=== PATIENT | female | born 1950 | race Caucasian/White ===

== ENCOUNTER → 2016-08-23 | Outpatient (CLI) | payer MEDICARE, OTHER ==
[~2016-08-23] MED LIST: AMLO1CAP5 PO; ASP81TEC PO; C250T PO; CALC-850 PO; CHOL10003 PO; CRESTOR40 MG PO; ESTR1TAB24 PO; ESTRACE; HYDR-1229 PO; LOTRIL; LVT.1T PO; MTF500T; MTF500TCR PO; OMEG1CAP51 PO; PNT40TEC PO; THYROXINE; VYTORIN
--- NOTE | 2016-08-24 15:29 | Diagnostic Imaging Report ---
Bilateral screening mammogram. The current study was also evaluated with a Computer Aided Detection (CAD) system. INDICATION: Screening. No current complaints stated on the questionnaire. COMPARISON: 09/01/2015. FINDINGS: The breasts are composed of scattered fibroglandular densities. There are scattered benign-appearing calcifications. There is a focal asymmetry measuring 7 mm seen in the central upper aspect of the left breast slightly more prominent compared to prior exams. The right breast demonstrates no definite change. IMPRESSION: Focal compression views and ultrasound evaluation for central slightly superior left breast focal asymmetry is recommended. ACR BI-RADS Category 0: Incomplete. (Needs additional imaging evaluation). Result letter will be mailed to the patient. Note: At least 10% of breast cancer is not imaged by mammography. Dictated by: Dictated on workstation # [id number]
== END ==
LOC: RAD 10:32
PROVIDERS: ATTEND Internal Medicine
DX: Z12.31 Encounter for screening mammogram for malignant neoplasm of breast (principal); R92.8 Other abnormal and inconclusive findings on diagnostic imaging of breast
CPT/HCPCS: 77067

== ENCOUNTER → 2016-09-05 | Outpatient (CLI) | payer MEDICARE, OTHER ==
--- NOTE | 2016-09-05 13:54 | Diagnostic Imaging Report ---
EXAMINATION: Left breast ultrasound. INDICATION: Left breast central slightly superior focal asymmetry seen on mammography. FINDINGS: The upper breast and retroareolar region were scanned with no underlying abnormality seen. IMPRESSION: Negative study. The focal asymmetry in the central slightly superior aspect of the left breast could relate to summation effect of parenchyma. A 6 month followup mammogram is recommended to ensure stability or resolution. ACR BI-RADS Category 3: Probably benign findings. Dictated by: Dictated on workstation # [id number]
--- NOTE | 2016-09-05 18:05 | Diagnostic Imaging Report ---
Left breast diagnostic mammogram. INDICATION: Focal asymmetry along the upper aspect of the left breast. The current study was also evaluated with a Computer Aided Detection (CAD) system. FINDINGS: Additional views demonstrate less prominent focal asymmetry in the upper aspect of the left breast which may suggest summation artifact of parenchyma. IMPRESSION: Less prominent asymmetry may relate to summation effect of parenchyma. Ultrasound evaluation pending. ACR BI-RADS Category 0: Incomplete. (Needs additional imaging evaluation). Result letter will be mailed to the patient. Note: At least 10% of breast cancer is not imaged by mammography. Dictated by: Dictated on workstation # [id number]
== END ==
LOC: RAD 12:58
PROVIDERS: ATTEND Internal Medicine
DX: N64.89 Other specified disorders of breast (principal)
CPT/HCPCS: 76642

== ENCOUNTER → 2017-02-17 | Outpatient (CLI) | payer MEDICARE, OTHER ==
--- NOTE | 2017-02-17 18:25 | Diagnostic Imaging Report ---
Left breast diagnostic mammogram with tomography evaluation. The current study was also evaluated with a Computer Aided Detection (CAD) system. COMPARISON: 09/05/16. INDICATION: Followup asymmetry along the lateral aspect of the left breast. FINDINGS: Again seen 6 mm oval circumscribed asymmetry slightly lateral in the left CC projection with no significant change from the previous study. IMPRESSION: Stable 6 mm oval circumscribed lateral left breast asymmetry with no significant change. This could be related to underlying fibroglandular tissue. Another followup when the patient is due for her bilateral mammogram in August 2017 is recommended. ACR BI-RADS Category 3: Probably benign findings. Result letter will be mailed to the patient. Note: At least 10% of breast cancer is not imaged by mammography. Dictated by: Dictated on workstation # [id number]
== END ==
LOC: RAD 08:49
PROVIDERS: ATTEND Internal Medicine
DX: N64.89 Other specified disorders of breast (principal)

== ENCOUNTER → 2017-10-05 | Outpatient (CLI) | payer MEDICARE, OTHER ==
--- NOTE | 2017-10-05 19:16 | Diagnostic Imaging Report ---
EXAMINATION: Bilateral diagnostic mammogram. INDICATION: Followup mammogram. The current study was also evaluated with a Computer Aided Detection (CAD) system. FINDINGS: The screening mammogram performed on 08/23/2016 noted a focal asymmetry in the central portion of the left breast measuring approximately 6-7 mm. The subsequent diagnostic mammogram and ultrasound exam of 09/05/2016 failed to show any evidence for malignancy. The asymmetric density also appeared stable on the followup diagnostic mammogram of 02/17/2017. On this study, the density in question is again evident and no different. I do suspect that this is a benign process. Even so, I would recommend that a six-month followup mammogram be obtained for continued evaluation. If this finding is stable on the followup mammogram and remains stable on the mammogram one year from now, then no further surveillance will be necessary as a two-year period of stability will have been established. The overall appearance of the breasts has not changed significantly otherwise. There are scattered fibroglandular densities in each breast, which could obscure a lesion. There is no primary or secondary sign of malignancy identified. IMPRESSION: 1. The small asymmetric density in the left breast seen previously appears stable. Most likely, this is a benign process. A six-month followup exam would be recommended for continued evaluation. 2. There is no evidence for malignancy involving either breast. ACR BI-RADS Category 3: Probably benign findings. Result letter will be mailed to the patient. Note: At least 10% of breast cancer is not imaged by mammography. Dictated by: Dictated on workstation # [id number]
== END ==
LOC: RAD 10:58
PROVIDERS: ATTEND Internal Medicine
DX: R92.0 Mammographic microcalcification found on diagnostic imaging of breast (principal)
CPT/HCPCS: 77066

== ENCOUNTER → 2018-10-17 | Outpatient (CLI) | payer MEDICARE, OTHER ==
--- NOTE | 2018-10-17 16:41 | Diagnostic Imaging Report ---
INDICATION: Six-month followup left breast density. COMPARISON: Correlation is made with prior mammograms dating back to 08/23/2016. TECHNIQUE: 2D and 3D bilateral diagnostic mammography was performed with CAD. FINDINGS: Scattered fibroglandular densities are identified bilaterally. An ovoid asymmetric density in the central left breast just lateral to the midline line on the CC view is stable. This now shows 2 years of stability. No new mass is detected. No suspicious microcalcifications are seen. There are benign calcifications present. The axillae are unremarkable. IMPRESSION: No mammographic features suspicious for malignancy are identified. The asymmetric density in the left breast now demonstrates 2 years of stability. The patient may return to routine annual screening mammography in October 2019. ACR BI-RADS Category 2: Benign findings. Result letter will be mailed to the patient. Note: At least 10% of breast cancer is not imaged by mammography. Dictated by: Dictated on workstation # [id number]
== END ==
LOC: RAD 13:42
PROVIDERS: ATTEND Internal Medicine
DX: R92.2 Inconclusive mammogram (principal); R92.0 Mammographic microcalcification found on diagnostic imaging of breast
CPT/HCPCS: 77066

== ENCOUNTER → 2019-10-21 | Outpatient (CLI) | payer MEDICARE, OTHER ==
--- NOTE | 2019-10-21 11:47 | Diagnostic Imaging Report ---
INDICATION: Routine screening. COMPARISON: 10/17/2018 and 10/05/2017. TECHNIQUE: 2D and 3D bilateral screening mammography was performed with CAD. FINDINGS: Scattered fibroglandular densities are identified bilaterally. The ovoid density in the left breast previously noted remains stable. No new mass or malignant appearing microcalcifications are seen. The axillae are unremarkable. IMPRESSION: No mammographic features suspicious for malignancy are identified. ACR BI-RADS Category 2: Benign findings. Result letter will be mailed to the patient. Note: At least 10% of breast cancer is not imaged by mammography. Dictated by: Dictated on workstation # [id number]
== END ==
LOC: RAD 08:46
PROVIDERS: ATTEND Internal Medicine
DX: Z12.31 Encounter for screening mammogram for malignant neoplasm of breast (principal)
CPT/HCPCS: 77063; 77067

== ENCOUNTER 2020-01-10 05:32 | Outpatient (RCR) | payer MEDICARE, OTHER ==
[~2020-01-10] VITALS: Ht 167.7 cm; Wt 95.5 kg
[~2020-01-10 05:32] MED LIST changes: +ASCO100024 PO; +ASPI-999 PO; +ATOR80TA76 PO; +CALC-83 PO; +CHOL200014 PO; +LEVO100T7 PO; +METF-865 PO; +OMEG1CAP13 PO; +PANT40TA52 PO
== END 2020-01-10 11:12 | disposition home or self-care (01) ==
LOC: PREOP 05:32
PROVIDERS: ATTEND Surgery
DX: Z01.812 Encounter for preprocedural laboratory examination (principal); Z12.11 Encounter for screening for malignant neoplasm of colon; K21.9 Gastro-esophageal reflux disease without esophagitis; Z20.828 Contact with and (suspected) exposure to other viral communicable diseases
CPT/HCPCS: 87635

== ENCOUNTER 2020-01-14 12:54 | Day surgery (SDC) | payer MEDICARE, OTHER ==
[~2020-01-14] VITALS: Ht 167.7 cm; Wt 95.5 kg
[2020-01-14] VITALS (7 sets, daily range): BP systolic 87–138; BP diastolic 49–79
[2020-01-14] MEDS ORDERED: LACTATED RINGERS 1,000 ML IV STA (13:05)
[2020-01-14] MEDS ORDERED: HURRICAINE EXT TUBE (BENZOCAINE) XX PRN (13:15)
[2020-01-14] MEDS ORDERED: LACTATED RINGERS 1,000 ML IV ONE (13:17)
[2020-01-14] MEDS ORDERED: PROPOFOL INJECTION 50 ML IV ONE (14:07)
--- NOTE | 2020-01-14 15:02 | Anesthesia-General Post-Op ---
MAC Patient Condition Mental Status/LOC: Same as Preop Cardiovascular: Satisfactory Nausea/Vomiting: Absent Respiratory: Satisfactory Pain: Controlled Complications: Absent Post Op Complications Complications None Follow Up Care/Instructions Patient Instructions None needed. Anesthesiology Discharge Order Discharge Order Patient is doing well, no complaints, stable vital signs, no apparent adverse anesthesia problems. No complications reported per nursing. JAY KRAUS CRNA Jan 14, 2020 15:02
--- NOTE | 2020-01-14 15:10 | Progress Note-Post Operative ---
Post-Operative Progess Note Surgeon (s)/Collections Representative (s) Surgeon BECKI DOLAN DO Collections Representative: na Pre-Operative Diagnosis gerd, screening colonoscopy Post-Operative Diagnosis gastric polyps, diverticulosis, ascending mucosal change Procedure & Operative Findings Date of Procedure 01/14/20 Procedure Performed/Findings egd c biopsies, colonoscopy c cold biopsy mucosal change Anesthesia Type per [facility] Estimated Blood Loss Estimated blood loss (mL): none Specimens/Packing Specimens Removed antrum, ge, ascending mucosal change BECKI DOLAN DO Jan 14, 2020 15:10
--- NOTE | 2020-01-14 15:11 | Discharge Inst-Simple/Standard ---
Discharge Inst-Standard Patient Instructions/Follow Up Plan of Care/Instructions/FU: 2 weeks Paulette Activity as Tolerated: Yes Discharge Diet: Regular Diet (high fiber) BECKI DOLAN DO Jan 14, 2020 15:11
--- NOTE | 2020-01-15 01:06 | OPERATIVE REPORT ---
DATE OF SERVICE: 01/14/2020 PREOPERATIVE DIAGNOSES: Gastroesophageal reflux disease, screening colonoscopy. POSTOPERATIVE DIAGNOSES: Gastric polyps, diverticulosis, ascending mucosal change. SURGEON: Becki Caldwell DO ANESTHESIA: Per MDA. ESTIMATED BLOOD LOSS: None. COMPLICATIONS: None. PROCEDURE: EGD with biopsies, colonoscopy with cold biopsy mucosal change. INDICATIONS: The patient is a 69-year-old female with reflux symptoms and also needing screening colonoscopy. She understands risks and benefits of procedure and wished to proceed with procedure. Consent was signed in the chart. DESCRIPTION OF PROCEDURE: The patient was taken to the endoscopy suite, placed in left lateral recumbent position. Timeout was performed. Scope was inserted in mouth, down the esophagus, stomach and into the duodenum without difficulty. There are no polyps, masses or ulcerations within the duodenum. Scope was slowly retracted back into the stomach where it was further insufflated. No masses or ulcerations. Small benign appearing polyps present. Biopsy of the antrum was obtained. Scope was retroflexed noting no other pathology. Scope was returned to its normal position, slowly withdrawn to distal esophagus. There are no polyps, masses or ulcerations. Biopsy of GE junction was obtained. Scope was then slowly retracted back until completely removed noting no other pathology. Digital rectal exam was performed. There were no palpable polyps, masses or ulcerations. Scope was inserted in the rectum and advanced all the way to the cecum without difficulty. Prep was adequate. No polyps, masses or ulcerations in the cecum. In the ascending colon, small mucosal changes present, cold biopsy was obtained. Scope was then slowly retracted back noting no other pathology from the cecum all the way down to the rectum where the scope was then retroflexed noting no other pathology. Scope was returned to its normal position and slowly withdrawn until completely removed. Again noting minimal amount of diverticulosis through the colon present. RECOMMENDATIONS: The patient recommended high fiber diet. Await biopsy results. Continue current medications. Await further recommendations pending results of biopsy. Job ID: [id number] DocumentID: [id number] Dictated Date: 01/14/2020 15:15:38 Predator Control Trapper Date: 01/15/2020 01:05:40 Dictated By: BECKI CALDWELL DO
== END 2020-01-14 15:35 | disposition home or self-care (01) ==
LOC: ENDO 12:54
PROVIDERS: ATTEND Surgery
DX: Z12.11 Encounter for screening for malignant neoplasm of colon (principal); K31.7 Polyp of stomach and duodenum; K57.30 Diverticulosis of large intestine without perforation or abscess without bleeding; I10 Essential (primary) hypertension; E11.9 Type 2 diabetes mellitus without complications; E03.9 Hypothyroidism, unspecified; E78.5 Hyperlipidemia, unspecified; Z87.19 Personal history of other diseases of the digestive system; M06.9 Rheumatoid arthritis, unspecified; K58.9 Irritable bowel syndrome, unspecified; Z96.651 Presence of right artificial knee joint; Z79.899 Other long term (current) drug therapy; Z79.890 Hormone replacement therapy; Z79.84 Long term (current) use of oral hypoglycemic drugs
CPT/HCPCS: 82962; 88305

== ENCOUNTER → 2020-10-21 | Outpatient (CLI) | payer MEDICARE, OTHER ==
--- NOTE | 2020-10-21 13:35 | Diagnostic Imaging Report ---
INDICATION: Routine screening. COMPARISON: 10/21/2019 and 10/17/2018. TECHNIQUE: 2D and 3D bilateral screening mammography was performed with CAD. FINDINGS: Scattered fibroglandular densities are identified bilaterally. A left breast circumscribed ovoid density is stable. No new mass or malignant-appearing microcalcifications are seen. There are benign calcifications present. The axillae are unremarkable. IMPRESSION: No mammographic features suspicious for malignancy are identified. ACR BI-RADS Category 2: Benign findings. Result letter will be mailed to the patient. Note: At least 10% of breast cancer is not imaged by mammography. Dictated by: Dictated on workstation # [id number]
== END ==
LOC: RAD 10:00
PROVIDERS: ATTEND Internal Medicine
DX: Z12.31 Encounter for screening mammogram for malignant neoplasm of breast (principal)
CPT/HCPCS: 77063; 77067

== ENCOUNTER → 2021-10-26 | Outpatient (CLI) | payer MEDICARE ==
[~2021-10-26] MED LIST changes: -CHOL200014 PO; +CHOL200052 PO
--- NOTE | 2021-10-26 15:48 | Diagnostic Imaging Report ---
INDICATION: Routine screening. COMPARISON: 10/21/2020 and 10/21/2019. TECHNIQUE: 2D and 3D bilateral screening mammography was performed with CAD. FINDINGS: Both breasts are heterogeneously dense, limiting the sensitivity of mammography. Benign nodular densities in both breasts are stable. No mass or malignant-appearing microcalcifications are seen. The axillae are unremarkable. IMPRESSION: No mammographic features suspicious for malignancy are identified. ACR BI-RADS Category 2: Benign findings. Result letter will be mailed to the patient. Note: At least 10% of breast cancer is not imaged by mammography. Dictated by: Dictated on workstation # [id number]
--- NOTE | 2021-10-26 17:00 | Diagnostic Imaging Report ---
INDICATION: Postmenopausal screening COMPARISON: 07/06/2009 FINDINGS: AP Spine L1-L4: [BMD (g/cm2): 1.461] [T-Score: 2.2] [Z-Score: 3.1] [BMD Previous: 1.456] [BMD % Change: 0.3] LT Hip Neck: [BMD (g/cm2): 0.957] [T-Score: -0.6] [Z-Score: -.07] LT Hip Total: [BMD (g/cm2):1.048] [T-Score:0.3] [Z-Score: 1.3] [BMD Previous: 1.233] [BMD % Change: -15.0] RT Hip Neck: [BMD (g/cm2):0.962] [T-Score:-0.5] [Z-Score:0.7] RT Hip Total: [BMD (g/cm2):1.100] [T-score:0.7] [Z-Score:1.7] [BMD Previous:1.227] [BMD % Change:-10.4] *Indicates significant change from prior examination based on 95% confidence level. World Health Organization criteria for BMD interpretation classify patients as Normal (T-score at or above -1.0), Osteopenic (T-score between -1.0 and -2.5) or Osteoporotic (T-score at or below -2.5). LIMITATIONS AND MODIFICATION: None. FRACTURE RISK (FRAX SCORE): The ten year probability of (%): Major Osteoporotic Fracture: [ ] Hip Fracture: [ ] IMPRESSION: 1. Normal bone mineral density. 2. No significant change in bone mineral density since prior examination. 3. See below National Osteoporosis Foundation guidelines on when to potentially initiate pharmacologic therapy. Based on the National Osteoporosis Foundation Guidelines, pharmacologic treatment should be initiated in any of the following, unless clinical conditions suggest otherwise: * Any patient with prior fragility fracture of the hip or vertebrae. A spine fracture indicates 5X risk for subsequent spine fracture and 2X risk for subsequent hip fracture. * Osteoporosis (T-score <-2.5). * Postmenopausal women and men age 50 and older with low bone mass/osteopenia (T-score between -1.0 and -2.5) by DXA and 10-year major osteoporotic fracture greater than 20% or a 10-year probability of hip fracture greater than 3%. These fracture risks are supplied above in the FRAX score, if applicable. * Clinician judgement and/or patient preferences may indicate treatment for people with 10-year fracture probabilities above or below these levels. Dictated by: Dictated on workstation # [id number]
== END ==
LOC: RAD 12:48
PROVIDERS: ATTEND Internal Medicine
DX: Z12.31 Encounter for screening mammogram for malignant neoplasm of breast (principal); Z13.820 Encounter for screening for osteoporosis; M85.80 Other specified disorders of bone density and structure, unspecified site; Z78.0 Asymptomatic menopausal state
CPT/HCPCS: 77063; 77067; 77080

== ENCOUNTER 2022-09-22 13:53 | Observation (INO) | payer MEDICARE ==
[2022-09-22] VITALS (15 sets, daily range): BP systolic 83–105; BP diastolic 53–70
[~2022-09-22] VITALS: Ht 167.7 cm; Wt 88.5 kg
[~2022-09-22 13:53] MED LIST changes: -OMEG1CAP13 PO; +OMEG1CAP33 PO
[2022-09-22] MEDS ORDERED: diphenhydrAMINE 50 MG/ML INJ (BENADRYL) IVP PRN (14:30)
[2022-09-22] MEDS ORDERED: BISACODYL 10 MG SUPP (DULCOLAX) PR PRN (14:30)
[2022-09-22] MEDS ORDERED: CALCIUM CARBONATE 500 MG (TUMS) TAB.CHEW PO PRN (14:30)
[2022-09-22] MEDS ORDERED: ONDANSETRON 4 MG/2 ML (SDV) Z0FRAN IV PRN (14:30)
[2022-09-22] MEDS ORDERED: polyethylene glycoL POWDER 17 GM (MIRALAX) PACK PO PRN (14:30)
[2022-09-22] MEDS ORDERED: MELATONIN 3 MG TABLET PO PRN (14:30)
[2022-09-22] MEDS ORDERED: ANTACID SUSP 30 ML UDC (MYLANTA) PO PRN (14:30)
[2022-09-22] MEDS ORDERED: NS IV 1000 ML 1,000 ML IV SCH ×2 (14:30→18:15)
[2022-09-22] MEDS ORDERED: ACETAMINOPHEN 325 MG TABLET PO PRN (14:30)
[2022-09-22] MEDS ORDERED: diphenhydrAMINE 25 MG TAB (BENADRYL) PO PRN (14:30)
[2022-09-22] MEDS ORDERED: MILK OF MAGNESIA 400 MG/5 ML 30 ML UDC PO PRN (14:30)
[2022-09-22] MEDS ORDERED: ONDANSETRON 4 MG (ZOFRAN) ORAL DISSOLVE TAB PO PRN (14:30)
[2022-09-22] MEDS ORDERED: LACTULOSE SYRUP 10GM/15ML (ENULOSE) 30ML UDC PO PRN (14:30)
[2022-09-22 14:48] LABS: BASOPHILS % (AUTO) 0 % (0-10); EOSINOPHILS # (AUTO) 0.1 10^3/uL (0.0-0.3); EOSINOPHILS % (AUTO) 2 % (0-10); HEMATOCRIT 42 % (35-52); LYMPHOCYTES # (AUTO) 1.8 10^3/uL (1.0-4.0); LYMPHOCYTES % (AUTO) 29 % (12-44); MEAN CORPUSCULAR HEMOGLOBIN 28 pg (25-34); MEAN CORPUSCULAR HGB CONC 33 g/dL (32-36); MEAN CORPUSCULAR VOLUME 85 fL (80-99); MONOCYTES # (AUTO) 0.8 10^3/uL (0.0-1.0); MONOCYTES % (AUTO) 12 % (0-12); NEUTROPHILS # (AUTO) 3.4 10^3/uL (1.8-7.8); NEUTROPHILS % (AUTO) 56 % (42-75); PLATELET COUNT 80 10^3/uL (130-400); WHITE BLOOD COUNT 6.1 10^3/uL (4.3-11.0)
[2022-09-22 14:53] LABS: ALBUMIN 3.5 GM/DL (3.2-4.5)
[2022-09-22 14:54] LABS: CALCIUM 8.9 MG/DL (8.5-10.1)
[2022-09-22 14:55] LABS: TOTAL PROTEIN 7.7 GM/DL (6.4-8.2)
[2022-09-22 14:57] LABS: BILIRUBIN,TOTAL 0.4 MG/DL (0.1-1.0)
[2022-09-22 14:59] LABS: CREATININE SERUM 1.65 MG/DL (0.60-1.30)
[2022-09-22] MEDS: NS IV 1000 ML 1,000 ML IV SCH (15:01)
[2022-09-22 15:12] LABS: BAND NEUTROPHILS 2 %; BASOPHILS % (MANUAL) 0 %; EOSINOPHILS % (MANUAL) 0 %; LYMPHOCYTES % (MANUAL) 13 %; MONOCYTES % (MANUAL) 20 %; NEUTROPHILS % (MANUAL) 62 %; REACTIVE LYMPHOCYTES 3 %
[2022-09-22 15:13] LABS: ABSOLUTE RETIC # 28 10e9/uL (24-90); ELLIPT/OVALOCYTES SLIGHT; ERYTHROCYTE SEDIMENTATION RATE 30 MM/HR (0-30); RETICULOCYTE % 0.55 % (0.50-2.40)
--- NOTE | 2022-09-22 15:25 | Progress Note ---
LOUIE VALLES 09/22/22 1525: Progress Note CC- weakness, diarrhea, weight loss HPI- Bria Medrano is a 71yoF with past medical history of non insulin dependent diabetes mellitus, HTN, HLD, GERD, hypothyroidism, and diverticulitis requiring bowel resection who is a direct admission from Dr. Munugia's clinic. She had a routine appointment this afternoon 09/22 and was admitted after she revealed a week long history of weakness, lack of appetite, weight loss, and diarrhea. She has also felt dizzy at home with reporting she fell 3 days ago. She did not hit her head and got right back up. She does not remember this event. Her and her reports they both had chills and felt weak about 1 week ago after working on a house. He felt better the next day but she began having diarrhea and weakness. Her diarrhea has been persistent and is clear liquid according to her. She has not noticed any blood or purulence in her BMs. She has significantly decreased food intake due to not feeling well. Reports she has been urinating normally at home. She denies recent sick contacts or any changes to her medications. ROS- negative for chest pain, shortness of breath, emesis, vision changes, headache, abdominal pain positive for weakness, chills, decreased appetite, diarrhea, nausea, weight loss PMH- DM non insulin dependent, HTN, HLD, hypothyroidism, diverticulitis, GERD PSH- colon resection due to diverticulitis, lumbar spine surgery FH- noncontributory Social Hx- denies alcohol, tobacco, or elicit drug use. Has never smoked. Allergies- NKDA Vitals- temp 36.0, HR 89, RR 18, BP 105/58, O2 99 on room air Physical Exam- General- no acute distress, WD/WN Cardio- RRR, no murmurs identified, normal S1 and S2. Respiratory- CTAB, equal breath sounds bilaterally, no wheezing, no accessory muscle use Abdominal- soft, nontender to palpation, no mass palpated, possible hepatomegaly Skin- pallor, no scleral icterus or jaundice, no obvious rash/lesion Extremities- no cyanosis, normal cap refill, pulses 2/3 in bl posterial tib, no peripheral edema Neuro- normal mood and affect, speech clear, EOMI Assessment and Plan Weakness Weight loss Diarrhea Clear liquid diet Fluid bolus Stool studies pending including fecal WBCs, occult blood, C Diff toxin, and stool culture UA pending CT ab/pelvis pending Abdominal u/s pending due to hepatomegaly, elevated liver enzymes, and low platelets Head CT stroke rule out pending JEAN Likely prerenal due to hypoperfusion from volume loss/diarrhea creatinine 1.6 monitor urine output continue IV fluids, receiving bolus then 1L of NS q8hr at 125mls/hr Thrombocytopenia Platelet count 80 Check CBC again in the morning undetermined etiology, could be secondary to liver disease peripheral smear Immature platelet fraction percentage is high, so bone marrow appears to be functioning Elevated liver enzymes AST and ALT elevated normal alk phos Abdominal u/s to evaluate liver Hyponatremia 132 Likely secondary to poor PO intake for 1 week and diarrhea hydrate with IV fluids check CMP in the morning DVT ppx- lovenox Diet- clear liquid code- full MIMI MUNGUIA DO 09/22/222129: Supervisory-Addendum Brief Verification & Attestation Participated in pt care: history, MDM, physical Personally performed: exam, history, MDM, supervision of care Care discussed with: Medical Student Procedures: n/a Results interpretation: Verified all documentation Verification and Attestation of Medical Student E/M Service A medical student performed and documented this service in my presence. I reviewed and verified all information documented by the medical student and made modifications to such information, when appropriate. I personally performed the physical exam and medical decision making. Mimi Munguia, Sep 22, 2022,21:30 LOUIE VALLES Sep 22, 2022 15:25 MIMI MUNGUIA DO Sep 22, 2022 21:30
[2022-09-22] MEDS: inSUlin ASPART (NovoLOG) 1 UNIT/0.01 ML (CHARGE PER UNIT) SC SCH ×2 (16:00→20:51)
[2022-09-22] MEDS ORDERED: RT-ALBUTEROL SULF 2.5 MG/3 ML PRE-MIX VIAL INH PRN (16:00)
--- NOTE | 2022-09-22 16:03 | Diagnostic Imaging Report ---
EXAMINATION: US Abdomen limited. TECHNIQUE: Multiple real-time grayscale images were obtained over the right upper quadrant in various projections. HISTORY: Abdominal pain. COMPARISON: 07/18/2013. FINDINGS: The liver is mildly enlarged in size. The liver is normal in echogenicity. No focal lesions are seen. The portal vein is patent with hepatopedal flow. Gallbladder is absent. Sonographic Young sign is negative. Common duct measures 1.1 cm. There is no biliary ductal dilation. The visualized portions of the pancreas are normal. The right kidney is normal without hydronephrosis. IMPRESSION: 1. Mildly enlarged liver. 2. Mildly dilated common bile duct, potentially related to prior cholecystectomy but consider MRCP to exclude an underlying lesion or stone. Dictated by: Dictated on workstation # [id number]
--- NOTE | 2022-09-22 16:28 | Diagnostic Imaging Report ---
PROCEDURE: CT head wo r/o stroke. TECHNIQUE: Multiple contiguous axial images were obtained through the brain without the use of intravenous contrast. Auto Exposure Controls were utilized during the CT exam to meet ALARA standards for radiation dose reduction. INDICATION: Ataxia. COMPARISON: None. FINDINGS: Mild generalized cerebral and cerebellar volume loss. Mild nonspecific periventricular hypoattenuation, most commonly seen with chronic small vessel ischemic disease. Calcified atherosclerosis of the bilateral cavernous and paraclinoid internal carotid arteries and intracranial vertebral arteries. No intra- or extra-axial mass or fluid collection. No acute hemorrhage. The ventricles are normal in size, shape, and morphology. The segura-white matter junction is normal. The subarachnoid cisterns are patent. The visualized paranasal sinuses are normal. The visualized portions of the orbits and globes are normal. The mastoid air cells are clear. The payroll officer topogram shows no lytic lesion or fracture. Impression: No acute intracranial process. Mild cerebral volume loss. Mild chronic small vessel ischemic disease. Dictated by: Dictated on workstation # [id number]
[2022-09-22 18:38] LABS: BILIRUBIN,URINE NEGATIVE (NEGATIVE); CLARITY,URINE CLEAR; COLOR,URINE YELLOW; GLUCOSE, URINE (UA) NEGATIVE (NEGATIVE); KETONES,URINE NEGATIVE (NEGATIVE); LEUKOCYTE ESTERASE ,URINE 1+ (NEGATIVE); NITRITE,URINE NEGATIVE (NEGATIVE); PROTEIN,URINE NEGATIVE (NEGATIVE)
[2022-09-22 18:51] LABS: BACTERIA,URINE MODERATE /HPF; WBC,URINE 0-2 /HPF
[2022-09-22] MEDS: DOCUSATE SODIUM 100 MG (COLACE) CAP PO SCH (20:51)
[2022-09-22] MEDS: SENNOSIDES 8.6 MG (SENOKOT) TAB PO SCH (20:51)
[2022-09-22] MEDS ORDERED: NS (IVPB) 250 ML IV PRN (21:00)
[2022-09-22] MEDS: cefTRIAXone IV/IM 1,000 MG in NS (IVPB) 50 ML IV SCH (22:20)
[2022-09-23] MEDS: NS IV 1000 ML 1,000 ML IV SCH ×4 (00:15→22:12)
[2022-09-23 03:48] VITALS: BP 102/70
[2022-09-23] MEDS: ENOXAPARIN 40 MG/0.4 ML (LOVENOX) SYR SC SCH (05:31)
[2022-09-23] MEDS: inSUlin ASPART (NovoLOG) 1 UNIT/0.01 ML (CHARGE PER UNIT) SC SCH ×4 (05:34→20:31)
[2022-09-23 05:46] LABS: BASOPHILS % (AUTO) 1 % (0-10); EOSINOPHILS % (AUTO) 0 % (0-10); HEMATOCRIT 37 % (35-52); HEMOGLOBIN 11.9 g/dL (11.5-16.0); LYMPHOCYTES # (AUTO) 1.6 10^3/uL (1.0-4.0); LYMPHOCYTES % (AUTO) 40 % (12-44); MEAN CORPUSCULAR HEMOGLOBIN 28 pg (25-34); MEAN CORPUSCULAR HGB CONC 33 g/dL (32-36); MEAN CORPUSCULAR VOLUME 87 fL (80-99); MEAN PLATELET VOLUME 11.7 fL (9.0-12.2); MONOCYTES # (AUTO) 0.7 10^3/uL (0.0-1.0); MONOCYTES % (AUTO) 17 % (0-12); NEUTROPHILS # (AUTO) 1.6 10^3/uL (1.8-7.8); NEUTROPHILS % (AUTO) 42 % (42-75); PLATELET COUNT 72 10^3/uL (130-400); WHITE BLOOD COUNT 3.9 10^3/uL (4.3-11.0)
[2022-09-23 06:10] LABS: ALBUMIN 2.7 GM/DL (3.2-4.5); BILIRUBIN,TOTAL 0.3 MG/DL (0.1-1.0); CREATININE SERUM 1.06 MG/DL (0.60-1.30); POTASSIUM 3.7 MMOL/L (3.6-5.0); TOTAL PROTEIN 5.9 GM/DL (6.4-8.2)
[2022-09-23] MEDS ORDERED: NS IV 1000 ML 1,000 ML IV SCH (06:30)
[2022-09-23 07:37] VITALS: BP 105/57
[2022-09-23] MEDS: DOCUSATE SODIUM 100 MG (COLACE) CAP PO SCH ×2 (08:32→20:28)
[2022-09-23] MEDS: SENNOSIDES 8.6 MG (SENOKOT) TAB PO SCH ×2 (08:33→20:28)
[2022-09-23] MEDS ORDERED: NS 100 ML (IVPB) BAG IV ONE (09:45)
[2022-09-23] MEDS ORDERED: IOHEXOL 350 MG/ML 100 ML (OMNIPAQUE 350) VIAL IV ONE (09:45)
[2022-09-23] MEDS ORDERED: HOLD METFORMIN - RECEIVED CONTRAST 20 ML VIAL IV SCH (09:45)
--- NOTE | 2022-09-23 11:06 | Diagnostic Imaging Report ---
EXAMINATION: CT abdomen and pelvis with intravenous contrast. TECHNIQUE: Multiple contiguous axial images were obtained through the abdomen and pelvis after the uneventful administration of intravenous contrast. All CT scans use one or more of the following dose optimizing techniques: automated exposure control, MA and/or KvP adjustment based on patient size and exam type or iterative reconstruction. HISTORY: Abnormal weight loss and abdominal pain COMPARISON: None available. FINDINGS: Limited views of the lower thorax show a calcified granuloma in the left lower lobe and bibasilar atelectasis. The liver is normal without focal lesion. There is no biliary ductal dilation. Gallbladder is absent. There is a 1.5 cm cyst in the uncinate process of the pancreas. No pancreatic ductal dilation. Spleen is normal. Adrenal glands are normal. The kidneys are normal. There is no hydronephrosis. Urinary bladder is normal. Bowel is normal in caliber without obstruction or inflammation. There has been a sigmoid colon resection. No free fluid or air. There are enlarged right groin lymph nodes measuring up to 1.9 cm. Aorta is normal in caliber without aneurysm. There are no suspicious osseus lesions. IMPRESSION: 1. Enlarged right groin lymph nodes measuring up 1.9 cm. Correlate for known malignancy or infection in the right lower extremity. Short-term follow-up or biopsy is recommended. 2. Cyst in the uncinate process of the pancreas. Follow-up MRI abdomen with and without contrast recommended. Dictated by: Dictated on workstation # [id number]
[2022-09-23 11:49] VITALS: BP 100/56
[2022-09-23] MEDS: DOXYCYCLINE INJECTION 100 MG in NS (IVPB) 100 ML IV SCH ×2 (12:09→20:28)
--- NOTE | 2022-09-23 13:29 | History & Physical ---
LOUIE VALLES 09/23/22 1329: History of Present Illness History of Present Illness Reason for visit/HPI CC- weakness, diarrhea, weight loss HPI- Bria Medrano is a 71yoF with past medical history of non insulin dependent diabetes mellitus, HTN, HLD, GERD, hypothyroidism, and diverticulitis requiring bowel resection who is a direct admission from Dr. Galindo's clinic. She had a routine appointment this afternoon 09/22 and was admitted after she revealed a week long history of weakness, lack of appetite, weight loss, and diarrhea. She has also felt dizzy at home with reporting she fell 3 days ago. She did not hit her head and got right back up. She does not remember this event. Her and her reports they both had chills and felt weak about 1 week ago after working on a house. He felt better the next day but she began having diarrhea and weakness. Her diarrhea has been persistent and is clear liquid according to her. She has not noticed any blood or purulence in her BMs. She has significantly decreased food intake due to not feeling well. Reports she has been urinating normally at home. She denies recent sick contacts or any changes to her medications. Date of Admission Sep 22, 2022 at 14:12 Time Seen by a Provider: 13:24 I consulted on this patient on 09/23/22 13:23 Attending Physician Mimi Galindo DO Admitting Physician Admitting Physician: Mimi Galindo DO Attending Physician: Mimi Galindo DO Consult Allergies and Home Medications Allergies Coded Allergies: No Known Drug Allergies (Verified , 11/20/06) Patient Home Medication List Home Medication List Reviewed: Yes Amlodipine Besylate/Benazepril (Lotrel 5-20 mg Capsule) 5 Mg-20 Mg Capsule, 1 EA PO DAILY, (Reported) Entered as Reported by: LYLY TURNER on 09/23/22 1401 Last Action: Reviewed Ascorbic Acid (Vitamin C) 1,000 Mg Tablet, 1,000 MG PO DAILY, (Reported) Entered as Reported by: MONTY CESPEDES on 01/08/20 1245 Last Action: Reviewed Aspirin (Aspirin) 81 Mg Tab.chew, 81 MG PO DAILY, (Reported) Entered as Reported by: MONTY CESPEDES on 01/08/20 1245 Last Action: Reviewed Atorvastatin Calcium (Atorvastatin Calcium) 80 Mg Tablet, 80 MG PO DAILY, (Reported) Entered as Reported by: MONTY CESPEDES on 01/08/201244 Last Action: Reviewed Baclofen (Baclofen) 10 Mg Tablet, 10 MG PO Q8H PRN for MUSCLE CRAMPS, (Reported) Entered as Reported by: LYLY TURNER on 09/23/221400 Last Action: Reviewed Calcium Carbonate/Mag Oxide/Zn (Odpwkxk-Ubpozgvts-Yjkx Tablet) 333 Mg-133 Mg-5 Mg Tablet, 1 EACH PO DAILY, (Reported) Entered as Reported by: LYLY TURNER on 09/23/221400 Last Action: Reviewed Cholecalciferol (Vitamin D3) (Vitamin D3) 50 Mcg Tablet, 50 MCG PO DAILY, (Reported) Entered as Reported by: MONTY CESPEDES on 01/08/201244 Last Action: Reviewed Estradiol (Estradiol Tablet) 1 Mg Tablet, 1 MG PO HS, (Reported) Entered as Reported by: MONTY CESPEDES on 01/08/201244 Last Action: Reviewed Levothyroxine Sodium (Levothyroxine Sodium) 125 Mcg Tablet, 125 MCG PO DAILY, (Reported) Entered as Reported by: LYLY TURNER on 09/23/221400 Last Action: Reviewed Metformin HCl (Metformin HCl ER) 500 Mg Tab.er.24h, 500 MG PO DAILY, (Reported) Entered as Reported by: MONTY CESPEDES on 01/08/201244 Last Action: Reviewed Worden-3 Fatty Acids/Fish Oil (Fish Oil 1,000 mg Softgel) 1 Each Capsule, 1 EACH PO DAILY, (Reported) Entered as Reported by: MONTY CESPEDES on 01/08/201244 Last Action: Reviewed Discontinued Medications Amlodipine Besylate/Benazepril (Lotrel 5-20 mg Capsule) 1 Each Capsule, 1 EACH PO DAILY, (Reported) Discontinued Reason: Duplicate Order Entered as Reported by: MONTY CESPEDES on 01/08/201244 Last Action: Discontinued Calcium Carb/Vit D3/Minerals (Calcium 600+D Plus Minerals Tb) 1 Each Tablet, 1 EACH PO DAILY, (Reported) Discontinued Reason: No Longer Taking Entered as Reported by: MONTY CESPEDES on 01/08/201244 Last Action: Discontinued Levothyroxine Sodium (Levothyroxine Sodium) 100 Mcg Tablet, 100 MCG PO DAILY, (Reported) Discontinued Reason: No Longer Taking Entered as Reported by: MONTY CESPEDES on 01/08/205 Last Action: Discontinued Pantoprazole Sodium (Pantoprazole Sodium) 40 Mg Tablet.dr, 40 MG PO DAILY, (Reported) Discontinued Reason: No Longer Taking Entered as Reported by: MONTY CESPEDES on 01/08/205 Last Action: Discontinued Past Wcrbpqe-Cgcpad-Zeugnh Hx Patient Social History Tobacco Use?: No Smoking Status: Never a Smoker Use of E-Cig and/or Vaping dev: No Substance use?: No Alcohol Use?: No Pt feels they are or have been: No Immunizations Up To Date Tetanus Booster (TDap): Unknown Hepatitis A: Yes Hepatitis B: Yes Seasonal Allergies Seasonal Allergies: Yes Current Status Advance Directives: No Communicates: Verbally Primary Language: Estonian Preferred Spoken Language: Estonian Is interpretation needed?: No Sensory deficits: Vision impairment Implanted or Applied Medical D: Orthopedic hardware Past Medical History Surgeries: Appendectomy, Gallbladder, Hysterectomy High Cholesterol, Hypertension ANIMAL TECHNICIAN History: Hysterectomy Gastroesophageal Reflux, Diverticulosis, Irritable Bowel Arthritis Diabetes, Non-Insulin dep Blood Disorders: Yes (anemia-low iron) Family Medical History No Pertinent Family Hx Review of Systems Constitutional: No chills, No diaphoresis; dizziness, weakness, weight loss EENTM: No hearing loss, No vision loss Respiratory: No cough, No short of breath, No wheezing Cardiovascular: No chest pain, No palpitations Gastrointestinal: No abdominal pain; diarrhea, nausea; No vomiting Genitourinary: No dysuria, No hematuria Musculoskeletal: joint pain Skin: No change in color, No change in hair/nails Psychiatric/Neurological: Denies Headache, Denies Pre-Existing Deficit, Denies Seizure Physical Exam Vital Signs Vital Signs - First Documented 09/22/22 09/22/22 09/22/22 14:07 14:23 15:38 Temp 36.0 Pulse 89 Resp 18 B/P (MAP) 105/58 (74) Pulse Ox 99 O2 Delivery Room Air O2 Flow Rate 0.00 FiO2 21 Capillary Refill : Height, Weight, BMI Height: 5'7.00" Weight: 210lbs. 0.0oz. 95.974579ep; 31.46 BMI Method: General Appearance: No Apparent Distress, WD/WN HEENT: PERRL/EOMI, Moist Mucous Membranes Neck: Supple Respiratory: Lungs Clear, Normal Breath Sounds, No Accessory Muscle Use, No Respiratory Distress Cardiovascular: Regular Rate, Rhythm, Normal Peripheral Pulses Gastrointestinal: Non Tender, Soft Rectal: Deferred Extremity: Normal Inspection, Non Tender, No Pedal Edema Neurologic/Psychiatric: Alert, Oriented x3, Normal Mood/Affect Skin: Normal Color, Warm/Dry Lymphatic: No Adenopathy (cannot palpate R pelvic node identified on CT) Assessment/Plan Assessment and Plan Weakness Weight loss Diarrhea Clear liquid diet continue IV fluids Stool studies pending including fecal WBCs, occult blood, and stool culture Cdiff toxin negative UA was positive for LE and bacteria, started on ceftriaxone CT ab/pelvis showed enlarged R pelvic lymph node and a pancreatic cysts Spoke with radiology regarding findings, MRI ordered to evaluate pancreas, will consider LN biopsy next week to evaluate for lymphoma Abdominal u/s revealed hepatomegaly and CBD dilation Head CT negative Hepatitis panel pending Tick panel pending Started doxycycline empirically, hx of cellulitis of the leg this spring that was believed to be associated with bug bites JEAN Likely prerenal due to hypoperfusion from volume loss/diarrhea creatinine 1.6, corrected to 1 monitor urine output continue IV fluids Thrombocytopenia Platelet count 72 undetermined etiology, could be secondary to liver disease peripheral smear Immature platelet fraction percentage is high, so bone marrow appears to be functioning Elevated liver enzymes AST and ALT elevated normal alk phos GGT level pending Hyponatremia 132 on admission now 141 Likely secondary to poor PO intake for 1 week and diarrhea hydrate with IV fluids check CMP in the morning DVT ppx- lovenox Diet- regular code- full MIMI GALINDO DO 09/23/22 2303: Allergies and Home Medications Allergies Coded Allergies: No Known Drug Allergies (Verified , 11/20/06) Patient Home Medication List Amlodipine Besylate/Benazepril (Lotrel 5-20 mg Capsule) 5 Mg-20 Mg Capsule, 1 EA PO DAILY, (Reported) Entered as Reported by: LYLY TURNER on 09/23/22 1401 Last Action: Reviewed Ascorbic Acid (Vitamin C) 1,000 Mg Tablet, 1,000 MG PO DAILY, (Reported) Entered as Reported by: MONTY CESPEDES on 01/08/20 1245 Last Action: Reviewed Aspirin (Aspirin) 81 Mg Tab.chew, 81 MG PO DAILY, (Reported) Entered as Reported by: MONTY CESPEDES on 01/08/201244 Last Action: Reviewed Atorvastatin Calcium (Atorvastatin Calcium) 80 Mg Tablet, 80 MG PO DAILY, (Reported) Entered as Reported by: MONTY CESPEDES on 01/08/201244 Last Action: Reviewed Baclofen (Baclofen) 10 Mg Tablet, 10 MG PO Q8H PRN for MUSCLE CRAMPS, (Reported) Entered as Reported by: LYLY TURNER on 09/23/221400 Last Action: Reviewed Calcium Carbonate/Mag Oxide/Zn (Ughdzpp-Bzvzbysce-Hshn Tablet) 333 Mg-133 Mg-5 Mg Tablet, 1 EACH PO DAILY, (Reported) Entered as Reported by: LYLY TURNER on 09/23/221400 Last Action: Reviewed Cholecalciferol (Vitamin D3) (Vitamin D3) 50 Mcg Tablet, 50 MCG PO DAILY, (Reported) Entered as Reported by: MONTY CESPEDES on 01/08/201244 Last Action: Reviewed Estradiol (Estradiol Tablet) 1 Mg Tablet, 1 MG PO HS, (Reported) Entered as Reported by: MONTY CESPEDES on 01/08/201244 Last Action: Reviewed Levothyroxine Sodium (Levothyroxine Sodium) 125 Mcg Tablet, 125 MCG PO DAILY, (Reported) Entered as Reported by: LYLY TURNER on 09/23/221400 Last Action: Reviewed Metformin HCl (Metformin HCl ER) 500 Mg Tab.er.24h, 500 MG PO DAILY, (Reported) Entered as Reported by: MONTY CESPEDES on 01/08/201244 Last Action: Reviewed Worden-3 Fatty Acids/Fish Oil (Fish Oil 1,000 mg Softgel) 1 Each Capsule, 1 EACH PO DAILY, (Reported) Entered as Reported by: MONTY CESPEDES on 01/08/201244 Last Action: Reviewed Discontinued Medications Amlodipine Besylate/Benazepril (Lotrel 5-20 mg Capsule) 1 Each Capsule, 1 EACH PO DAILY, (Reported) Discontinued Reason: Duplicate Order Entered as Reported by: MONTY CESPEDES on 01/08/201244 Last Action: Discontinued Calcium Carb/Vit D3/Minerals (Calcium 600+D Plus Minerals Tb) 1 Each Tablet, 1 E ACH PO DAILY, (Reported) Discontinued Reason: No Longer Taking Entered as Reported by: MONTY CESPEDES on 01/08/201244 Last Action: Discontinued Levothyroxine Sodium (Levothyroxine Sodium) 100 Mcg Tablet, 100 MCG PO DAILY, (Reported) Discontinued Reason: No Longer Taking Entered as Reported by: MONTY CESPEDES on 01/08/201244 Last Action: Discontinued Pantoprazole Sodium (Pantoprazole Sodium) 40 Mg Tablet.dr, 40 MG PO DAILY, (Reported) Discontinued Reason: No Longer Taking Entered as Reported by: MONTY CESPEDES on 01/08/201244 Last Action: Discontinued Assessment/Plan Assessment and Plan Hold Cosentyx MRI to r/o pancreatic mass Admission Diagnosis Admission Status: Observation Supervisory-Addendum Brief Verification & Attestation Participated in pt care: history, MDM, physical Personally performed: exam, history, MDM, supervision of care Care discussed with: Medical Student Procedures: n/a Results interpretation: Verified all documentation Verification and Attestation of Medical Student E/M Service A medical student performed and documented this service in my presence. I reviewed and verified all information documented by the medical student and made modifications to such information, when appropriate. I personally performed the physical exam and medical decision making. Mimi Galindo Sep 23, 2022,23:03 LOUIE VALLES Sep 23, 2022 13:29 MIMI GALINDO DO Sep 23, 2022 23:03
[2022-09-23] MEDS ORDERED: BACL10TA PO (14:01)
[2022-09-23] MEDS ORDERED: LEVO125T6 PO (14:01)
[2022-09-23] MEDS ORDERED: CALC-687 PO (14:01)
[2022-09-23] MEDS ORDERED: AMLO1CAP5 PO (14:01)
--- NOTE | 2022-09-23 14:17 | Physical Therapy Evaluation ---
PT Evaluation-General Medical Diagnosis Admission Date Sep 22, 2022 at 14:12 Medical Diagnosis: ataxia/weight loss Onset Date: Sep 22, 2022 Therapy Diagnosis Therapy Diagnosis: debility Height/Weight Height (Feet): 5 Height (Inches): 7.00 Weight (Pounds): 210 Weight (Ounces): 0.0 Precautions Precautions/Isolations: Contact Isolation Referral Physician: Ezra Reason for Referral: Evaluation/Treatment Medical History Pertinent Medical History: DM, HTN Current History direct admit from office Reviewed History: Yes Social History Home: Single Level Current Living Status: Spouse PT Steps Into Home: 3 Prior Prior Level of Function SCALE: Activities may be completed with or without assistive devices. 9-Hilrewohov-vkdwpjd completes the activity by him/herself with no assistance from a helper. 5-Set-up or Clean-up Assistance-helper sets up or cleans up; patient completes activity. [place] assists only prior to or following the activity. 4-Supervision or Touching Assistance-helper provides verbal cues and/or touching/steadying and/or contact guard assistance as patient completes activity. Assistance may be provided throughout the activity or intermittently. 3-Partial/Moderate Assistance-helper does LESS THAN HALF the effort. [place] lifts, holds or supports trunk or limbs, but provides less than half the effort. 2-Substantial/Maximal Assistance-helper does MORE THAN HALF the effort. [place] lifts or holds trunk or limbs and provides more than half the effort. 4-Cqkuauoos-yerscr does ALL the effort. Patient does none of the effort to complete the activity. Or, the assistance of 2 or more helpers is required for the patient to complete the activity. If activity was not attempted, code reason: 7-Patient Refused. 9-Not Applicable-not attempted and the patient did not perform the activity before the current illness, exacerbation or injury. 10-Not Attempted due to Environmental Limitations-(lack of equipment, weather restraints, etc.). 88-Not Attempted due to Medical Conditions or Safety Concerns. Bed Mobility: 6 Transfers (B,C,W/C): 6 Gait: 6 Stairs: 6 Indoor Mobility (Ambulation): Independent Stairs: Independent Prior Devices Use: None PT Evaluation-Current Subjective Patient agrees to PT. Objective Patient Orientation: Normal For Age Attachments: IV ROM/Strength ROM Lower Extremities bilateral LE WFL Strength Lower Extremities 4/5 grossly bilateral LE all planes Integumentary/Posture Bowel Incontinence: No Bladder Incontinence: No Posture WFL Neuromuscular (Tone, Coordination, Reflexes) grossly intact Sensory Vision: Functional Hearing: Functional Transfers Sit to Lying (QC): 6 Lying to Sitting/Side of Bed(Q: 6 Sit to Stand (QC): 4 Gait Mode of Locomotion: Walk Anticipated Mode of Locomotion: Walk Walk 10 feet (QC): 4 Walk 50 ft with 2 Turns(QC): 4 Walk 150 ft (QC): 4 Distance: 250' Gait Assistive Device: None Comments/Gait Description slightly unsteady with self correct Balance Sitting Static: Normal Sitting Dynamic: Normal Standing Static: Fair Standing Dynamic: Fair Assessment/Needs Patient will be seen x 2 sessions to ensure functional mobility remains at a safe LOF. Rehab Potential: Fair PT Short Term Goals Short Term Goals Time Frame: Sep 24, 2022 Roll Left & Right: 6 Sit to lyin Lying to sitting on side of be: 6 Sit to stand: 6 Chair/icm-cg-egaic transfer: 6 Walk 10 feet: 6 Walk 50 feet with two turns: 6 Walk 150 feet: 6 PT Plan Treatment/Plan Treatment Plan: Continue Plan of Care Treatment Plan: Education, Functional Activity Dariusz, Functional Strength, Gait, Safety, Transfers Treatment Duration: Sep 24, 2022 Frequency: 2 times per week Estimated Hrs Per Day: .25 hour per day Patient and/or Family Agrees t: Yes Time Time In: 1328 Time Out: 1340 DATE: Sep 23, 2022 Total Billed Treatment Time: 12 Total Billed Treatment 1 visit EVMod 12 min REYMUNDO AVILA PT Sep 23, 2022 14:17
[2022-09-23 15:41] VITALS: BP 93/53
[2022-09-23 20:19] VITALS: BP 99/67
[2022-09-23 21:10] LABS: HEPATITIS C ANTIBODY C Non-Reactive (Non-Reactive)
[2022-09-23] MEDS: cefTRIAXone IV/IM 1,000 MG in NS (IVPB) 50 ML IV SCH (22:10)
[2022-09-23 23:09] VITALS: BP 98/53
[2022-09-24 03:04] VITALS: BP 102/66
[2022-09-24] MEDS: NS IV 1000 ML 1,000 ML IV SCH (03:05)
[2022-09-24] MEDS: ENOXAPARIN 40 MG/0.4 ML (LOVENOX) SYR SC SCH (05:46)
[2022-09-24 06:10] LABS: EOSINOPHILS % (AUTO) 1 % (0-10); NEUTROPHILS # (AUTO) 1.6 10^3/uL (1.8-7.8)
[2022-09-24 06:12] LABS: BASOPHILS % (AUTO) 1 % (0-10); HEMATOCRIT 37 % (35-52); HEMOGLOBIN 11.6 g/dL (11.5-16.0); LYMPHOCYTES # (AUTO) 1.8 10^3/uL (1.0-4.0); LYMPHOCYTES % (AUTO) 43 % (12-44); MEAN CORPUSCULAR HEMOGLOBIN 28 pg (25-34); MEAN CORPUSCULAR HGB CONC 31 g/dL (32-36); MEAN CORPUSCULAR VOLUME 88 fL (80-99); MEAN PLATELET VOLUME 12.3 fL (9.0-12.2); MONOCYTES # (AUTO) 0.7 10^3/uL (0.0-1.0); MONOCYTES % (AUTO) 16 % (0-12); NEUTROPHILS % (AUTO) 40 % (42-75); PLATELET COUNT 99 10^3/uL (130-400); WHITE BLOOD COUNT 4.1 10^3/uL (4.3-11.0)
[2022-09-24 06:13] LABS: SMEAR SCAN COMMENT YES
[2022-09-24 06:28] LABS: ALBUMIN 2.9 GM/DL (3.2-4.5); BILIRUBIN,TOTAL 0.3 MG/DL (0.1-1.0); CREATININE SERUM 0.78 MG/DL (0.60-1.30); POTASSIUM 3.5 MMOL/L (3.6-5.0); TOTAL PROTEIN 6.4 GM/DL (6.4-8.2)
[2022-09-24] MEDS: inSUlin ASPART (NovoLOG) 1 UNIT/0.01 ML (CHARGE PER UNIT) SC SCH ×2 (06:57→11:53)
[2022-09-24 07:30] VITALS: BP 109/57
[2022-09-24] MEDS: SENNOSIDES 8.6 MG (SENOKOT) TAB PO SCH (08:16)
[2022-09-24] MEDS: DOCUSATE SODIUM 100 MG (COLACE) CAP PO SCH (08:16)
[2022-09-24] MEDS: DOXYCYCLINE INJECTION 100 MG in NS (IVPB) 100 ML IV SCH (08:17)
--- NOTE | 2022-09-24 08:51 | Physical Therapy Daily Note ---
PT Daily Note-Current Subjective Patient reports she is going home. Agrees to therapy. Pain Section J - Health Conditions 1. Rarely or not at all 2. Occasionally 3. Frequently 4. Almost constantly 8. Unable to answer Pain Effect on Sleep: 1 Pain Interference with Therapy: 1 Pain Interference w/Day-to-Day: 1 Mental Status Patient Orientation: Normal For Age Attachments: IV Transfers SCALE: Activities may be completed with or without assistive devices. 3-Cysikgqhcb-lbsmevn completes the activity by him/herself with no assistance from a helper. 5-Set-up or Clean-up Assistance-helper sets up or cleans up; patient completes activity. [place] assists only prior to or following the activity. 4-Supervision or Touching Assistance-helper provides verbal cues and/or touching/steadying and/or contact guard assistance as patient completes activity. Assistance may be provided throughout the activity or intermittently. 3-Partial/Moderate Assistance-helper does LESS THAN HALF the effort. [place] lifts, holds or supports trunk or limbs, but provides less than half the effort. 2-Substantial/Maximal Assistance-helper does MORE THAN HALF the effort. [place] lifts or holds trunk or limbs and provides more than half the effort. 0-Hgstlnmas-nqnoat does ALL the effort. Patient does none of the effort to complete the activity. Or, the assistance of 2 or more helpers is required for the patient to complete the activity. If activity was not attempted, code reason: 7-Patient Refused. 9-Not Applicable-not attempted and the patient did not perform the activity before the current illness, exacerbation or injury. 10-Not Attempted due to Environmental Limitations-(lack of equipment, weather restraints, etc.). 88-Not Attempted due to Medical Conditions or Safety Concerns. Sit to Lying (QC): 6 Lying to Sitting/Side of Bed(Q: 6 Sit to Stand (QC): 6 Gait Training Distance: 350' Walk 10 feet (QC): 6 Walk 50 ft with 2 Turns(QC): 6 Walk 150 ft (QC): 6 Gait Assistive Device: None safe and functional with no deviation Assessment PT to dismiss patient from services at this time due to patient is independent with all functional mobility safely. PT Short Term Goals Short Term Goals Time Frame: Sep 24, 2022 Roll Left & Right: 6 Sit to lyin Lying to sitting on side of be: 6 Sit to stand: 6 Chair/wjq-lr-ckgct transfer: 6 Walk 10 feet: 6 Walk 50 feet with two turns: 6 Walk 150 feet: 6 PT Plan Treatment/Plan Treatment Plan: Discontinue PT Treatment Plan: Education, Functional Activity Dariusz, Functional Strength, Gait, Safety, Transfers Treatment Duration: Sep 24, 2022 Frequency: 2 times per week Estimated Hrs Per Day: .25 hour per day Patient and/or Family Agrees t: Yes Time Time In: 821 Time Out: 831 DATE: Sep 24, 2022 Total Billed Treatment Time: 10 Total Billed Treatment 1 visit FA 10 min REYMUNDO AVILA PT Sep 24, 2022 08:51
[2022-09-24 11:12] VITALS: BP 125/71
[2022-09-24] MEDS ORDERED: DOXY100C5 PO (11:45)
--- NOTE | 2022-09-24 11:47 | Discharge Inst-Simple/Standard ---
Discharge Inst-Standard Discharge Medications New, Converted or Re-Newed RX: Transmitted to Pharmacy Patient Instructions/Follow Up Plan of Care/Instructions/FU: Please continue to take your medications as written. Please follow up with your primary care doctor to follow up this hospital stay. It appears you have been off of your blood pressure, diabetes, thyroid medicine for a few weeks based off of refill histories. Your blood sugars and blood pressures were within normal range in the hospital so continue to hold these until you are seen by Dr. Munguia. Activity as Tolerated: Yes Discharge Diet: No Restrictions Return to The Hospital For: Chest pain, shortness of breath, fever, weakness, if you feel you are getting worse. KELSEY MUNOZ MD Sep 24, 2022 11:47
--- NOTE | 2022-09-24 11:51 | Discharge Summary ---
Diagnosis/Chief Complaint Date of Admission Sep 22, 2022 at 14:12 Date of Discharge Discharge Date: Sep 24, 2022 Primary Care Mimi Munguia DO Discharge Summary Discharge Physical Exam Allergies: Coded Allergies: No Known Drug Allergies (Verified , 11/20/06) Vitals & I&Os Vital Signs Date Time Temp Pulse Resp B/P (MAP) Pulse Ox O2 Delivery O2 Flow Rate FiO2 09/24/22 13:25 09/24/22 11:12 37.0 82 18 98 Room Air 09/23/22 08:00 0.00 09/22/22 15:38 21 General Appearance: No Apparent Distress Respiratory: Lungs Clear Cardiovascular: Regular Rate, Rhythm, No Murmur Gastrointestinal: Normal Bowel Sounds, Soft Neurologic/Psychiatric: Alert, Oriented x3 Hospital Course Patient was admitted to the hospital secondary to weakness and diarrhea. She had a history of bug bites as well and was started on Keflex by [facility]. C. difficile was checked and was negative. She was started on doxycycline to cover for any tickborne illness. She improved and was able to be discharged home. A CT of her abdomen was done which did reveal a pancreatic cyst and an MRI was attempted. Patient reports that MRI was taken though there is no record of this. I spoke with radiologist who has no images to review. I called and spoke with Dr. Munguia and updated her on this and she plans to obtain outpatient imaging to further follow the pancreatic cyst. Her blood pressure and blood sugars were well controlled and so she was given instructions to hold her home medications until she saw Dr. Singh next week. She is to follow-up with Dr. Singh next week as stated above. She was discharged home in stable and improved condition. Labs (last 24 hrs) Microbiology 09/23/22 C. difficile [facility] Antigen & Toxins - Final, Resulted 09/23/22 Stool Culture - Preliminary, Resulted 09/22/22 Urine Culture - Final, Complete See Comments 09/22/22 MRSA Screen - Final, Complete MRSA not isolated Patient resulted labs reviewed. Pending Labs Discussion & Recommendations Discharge Planning: >30 minutes discharge planning Discharge Home Medications: Active Scripts Active Doxycycline Hyclate 100 Mg Capsule 100 Mg PO BID Reported Levothyroxine Sodium 125 Mcg Tablet 125 Mcg PO DAILY LAST FILLED 04-27-2022 #90/90 DAY SUPPLY Baclofen 10 Mg Tablet 10 Mg PO Q8H PRN Vitamin D3 (Cholecalciferol (Vitamin D3)) 50 Mcg Tablet 50 Mcg PO DAILY Fish Oil 1,000 mg Softgel ([place]-3 Fatty Acids/Fish Oil) 1 Each Capsule 1 Each PO DAILY Aspirin 81 Mg Tab.chew 81 Mg PO DAILY Vitamin C (Ascorbic Acid) 1,000 Mg Tablet 1,000 Mg PO DAILY Estradiol Tablet (Estradiol) 1 Mg Tablet 1 Mg PO HS Atorvastatin Calcium 80 Mg Tablet 80 Mg PO DAILY LAST FILLED 04-27-2022 #90/90 DAY SUPPLY Metformin HCl ER (Metformin HCl) 500 Mg Tab.er.24h 500 Mg PO DAILY LAST FILLED 04-27-2022 #90/90 DAY SUPPLY Instructions to patient/family Please see electronic discharge instructions given to patient. KELSEY MUNOZ MD Sep 24, 2022 11:51
== END 2022-09-24 11:49 | disposition home or self-care (01) ==
LOC: 4TH 14:07 → UNDOADMOB 14:12 → UNDODISOB 09-24 11:49
PROVIDERS: ADMIT Internal Medicine; ATTEND Family Medicine
DX: R53.1 Weakness (principal); R63.4 Abnormal weight loss; R19.7 Diarrhea, unspecified; N17.9 Acute kidney failure, unspecified; D69.6 Thrombocytopenia, unspecified; R74.01 Elevation of levels of liver transaminase levels; E87.1 Hypo-osmolality and hyponatremia
CPT/HCPCS: 70450; 74177; 76705; 80053 ×3; 80074; 81000; 82274; 82533; 82947 ×3; 82977; 83605; 85007; 85025 ×3; 85027; 85045; 85055; 85652; 86141; 86618; 86666 ×2; 86668; 86757 ×2; 87015; 87045; 87046; 87081; 87088; 87324; 87449; 87899; 94760; 96360; 96366 ×2; 96372 ×2; 96375; 96376; 97162; 97530; G0378; G0379; 36415; 94664

== ENCOUNTER → 2022-10-11 | Outpatient (CLI) | payer MEDICARE ==
[~2022-10-11] MED LIST changes: +BACL10TA PO; +CALC-687 PO; +DOXY100C5 PO; +GADOTERATE 0.5 MMOL/ML (CLARISCAN) 20 ML VIAL IV ONE; +LEVO125T6 PO
--- NOTE | 2022-10-11 13:07 | Diagnostic Imaging Report ---
EXAMINATION: MRI of the abdomen with and without contrast. TECHNIQUE: Multiplanar, multisequence MR images of the abdomen were obtained with and without intravenous contrast. 3-D MIP reformats of the biliary system were created on a separate workstation and submitted for interpretation for MRCP protocol. HISTORY: Pancreatic cyst. COMPARISON: CT abdomen and pelvis from 09/23/2022. FINDINGS: Liver: No suspicious liver lesions. Mild signal dropout on opposed-phase imaging indicates hepatic steatosis. No surface nodularity. Ducts: No biliary ductal dilation. No choledocholithiasis. Gallbladder: Cholecystectomy. Pancreas: There is a simple T2 hyperintense cystic structure at the uncinate process of the pancreas measuring 1.5 x 1.5 cm. This has no associated restricted diffusion, measurable enhancement or mural nodularity. The remainder of the pancreas enhances normally without mass or ductal dilation. Spleen: Normal. Adrenals: Normal. Kidneys: No suspicious lesions. No hydronephrosis. Bowel: Normal. Other: No lymphadenopathy. Visualized portions of the thorax are normal. No suspicious osseous lesions. IMPRESSION: 1. The structure at the uncinate process of pancreas is purely cystic and has no worrisome features. This may represent a pseudocyst from prior pancreatitis versus side branch intraductal mucinous neoplasm (IPMN). Consider follow-up MRI abdomen without and with IV contrast in 6-12 months to ensure stability. Dictated by: Dictated on workstation # [id number]
== END ==
LOC: RAD 08:00
PROVIDERS: ATTEND Internal Medicine
DX: C25.2 Malignant neoplasm of tail of pancreas (principal); Z90.49 Acquired absence of other specified parts of digestive tract
CPT/HCPCS: 74183

== ENCOUNTER → 2022-11-28 | Outpatient (CLI) | payer MEDICARE ==
[~2022-11-28] MED LIST changes: -GADOTERATE 0.5 MMOL/ML (CLARISCAN) 20 ML VIAL IV ONE
--- NOTE | 2022-11-28 10:22 | Diagnostic Imaging Report ---
Indication: Routine screening. Comparison is made with prior mammogram 10/26/2021 and 10/21/2020. 2-D and 3-D bilateral screening mammography was performed with CAD. The current study was also evaluated with a Computer Aided Detection (CAD) system. Scattered fibroglandular densities are identified bilaterally. A benign-appearing nodule left breast are stable. There appear to be some emerging calcifications in the upper slightly outer right breast at mid to posterior depth. Additional views are recommended. There are benign calcifications elsewhere in both breasts. No spiculated masses are seen. Axillae are unremarkable. IMPRESSION: BI-RADS 0 Increasing right breast calcifications. Additional views recommended for further evaluation. ACR BI-RADS Category 0: Incomplete. (Needs additional imaging evaluation). Result letter will be mailed to the patient. Note: At least 10% of breast cancer is not imaged by mammography. Dictated by: Dictated on workstation # [id number]
== END ==
LOC: RAD 07:01
PROVIDERS: ATTEND Internal Medicine
DX: Z12.31 Encounter for screening mammogram for malignant neoplasm of breast (principal); R92.1 Mammographic calcification found on diagnostic imaging of breast
CPT/HCPCS: 77063; 77067

== ENCOUNTER → 2022-12-14 | Outpatient (CLI) | payer MEDICARE, OTHER ==
--- NOTE | 2022-12-14 13:01 | Diagnostic Imaging Report ---
INDICATION: Right breast calcifications. Patient presents for additional views. COMPARISON: Screening mammogram from 11/28/2022. TECHNIQUE: Unilateral right 2D and 3D diagnostic mammography was performed. This included magnification CC and ML views as well as 90 degree lateral views. FINDINGS: There is a new cluster of microcalcifications in the upper and slightly outer right breast at mid to posterior depth. While these are clustered, the majority do appear to be punctate. No associated soft tissue mass is identified. IMPRESSION: New cluster of microcalcifications in the upper slightly outer right breast at mid to posterior depth. DCIS could not be entirely excluded and tissue sampling would be recommended. These would be amenable to a stereotactic biopsy approach. ACR BI-RADS Category 4: Suspicious abnormality. Result letter will be mailed to the patient. Note: At least 10% of breast cancer is not imaged by mammography. Dictated by: Dictated on workstation # [id number]
== END ==
LOC: RAD 12:01
PROVIDERS: ATTEND Internal Medicine
DX: R92.0 Mammographic microcalcification found on diagnostic imaging of breast (principal)
CPT/HCPCS: 77065; G0279

== ENCOUNTER → 2022-12-26 | Outpatient (CLI) | payer MEDICARE ==
[~2022-12-26] VITALS: Ht 167.6 cm; Wt 86.4 kg
[~2022-12-26] MED LIST changes: +LIDOCAINE 1% INJ 10 ML VIAL INJ ONE; +LIDOCAINE 1% INJ 10 ML VIAL ONE
--- NOTE | 2022-12-26 14:22 | Diagnostic Imaging Report ---
INDICATION: Right breast calcifications. Patient presents for stereotactic biopsy. DETAILS OF THE PROCEDURE: The patient was brought to the stereotactic suite and placed in a chair in the sitting upright position. The right breast was positioned lateral medial. Stereotactic and tomographic imaging was then performed. All images were viewed on a dedicated workstation. The lateral right breast was then prepped and draped in the usual sterile fashion. A small amount of 1% lidocaine was utilized for local anesthesia. An 8-gauge vacuum assisted needle was advanced into the right breast from a lateral medial approach and placed per stereotactic coordinates. Numerous core biopsies were obtained with a vacuum-assisted device. Specimen radiographs were then obtained. Specimen radiographs do show multiple calcifications within the samples. A marker clip was then deployed. The needle was removed and hemostasis was obtained. 2D CC and lateral medial mammography was then obtained to evaluate clip placement utilizing dedicated mammographic equipment. Images demonstrate the clip in the upper central right breast. The patient tolerated the procedure well. IMPRESSION: Right breast stereotactic biopsy, as described, utilizing an 8-gauge vacuum-assisted device. Pathology results are currently pending. Dictated by: Dictated on workstation # [id number]
== END ==
LOC: RAD 11:54
PROVIDERS: ATTEND Internal Medicine
DX: N63.10 Unspecified lump in the right breast, unspecified quadrant (principal); N83.10 Corpus luteum cyst of ovary, unspecified side
CPT/HCPCS: 19081; A4648

== ENCOUNTER 2023-01-04 10:19 | Outpatient (RCR) | payer MEDICARE ==
[~2023-01-04 10:19] MED LIST changes: -LIDOCAINE 1% INJ 10 ML VIAL INJ ONE; -LIDOCAINE 1% INJ 10 ML VIAL ONE
== END 2023-01-10 | disposition home or self-care (01) ==
LOC: ONC 10:19
PROVIDERS: ATTEND Internal Medicine Hematology & Oncology
DX: D05.11 Intraductal carcinoma in situ of right breast (principal); I10 Essential (primary) hypertension; E11.9 Type 2 diabetes mellitus without complications
CPT/HCPCS: 99204

== ENCOUNTER → 2023-01-13 | Outpatient (CLI) | payer MEDICARE, OTHER ==
[~2023-01-13] MED LIST changes: +HOLD METFORMIN - RECEIVED CONTRAST 20 ML VIAL IV SCH; +IOHEXOL 350 MG/ML 100 ML (OMNIPAQUE 350) VIAL IV ONE; +NS 100 ML (IVPB) BAG IV ONE
[2023-01-13 08:49] LABS: CREATININE SERUM 1.06 MG/DL (0.60-1.30)
--- NOTE | 2023-01-13 09:41 | Diagnostic Imaging Report ---
PROCEDURE: CT chest, abdomen, and pelvis with contrast. TECHNIQUE: Multiple contiguous axial images were obtained through the chest, abdomen, and pelvis after the administration of intravenous contrast. Auto Exposure Controls were utilized during the CT exam to meet ALARA standards for radiation dose reduction. INDICATION: Newly diagnosed breast carcinoma. Comparison is made with prior CT abdomen and pelvis study from 09/23/2022. CT CHEST: Right breast nodule containing a biopsy marker clip is noted. No definite axillary lymphadenopathy is detected. No internal mammary lymphadenopathy is detected. No mediastinal or hilar lymphadenopathy is detected. There is no pericardial or pleural fluid identified. There is a calcified granuloma in the left lower lobe. No noncalcified nodules or masses are detected. There are no infiltrates identified. CT abdomen and pelvis: No liver mass is identified. Gallbladder surgically absent. There is no biliary ductal dilatation. Cystic lesion in the uncinate process of the pancreas is stable at approximately 17 mm. The remainder of the pancreas is unremarkable. The spleen is unremarkable. No adrenal mass is detected. Kidneys are unremarkable. No calculi are identified. There is no hydronephrosis. Aorta is nonaneurysmal. No central retroperitoneal or mesenteric lymphadenopathy is detected. There are several surgical clips in the abdomen. Bowel loops are normal in caliber. There is no obstruction. No pelvic lymphadenopathy is identified. There is no ascites. Bladder is decompressed. Uterus appears to be surgically absent. Ovaries are unremarkable. The bony structures are unremarkable. IMPRESSION: Essentially unremarkable CT of the chest, abdomen and pelvis. There is no evidence of thoracic, abdominal or pelvic lymphadenopathy or metastatic disease. Dictated by: Dictated on workstation # [id number]
== END ==
LOC: RAD 08:16
PROVIDERS: ATTEND Internal Medicine Hematology & Oncology
DX: D05.11 Intraductal carcinoma in situ of right breast (principal)
CPT/HCPCS: 36415; 71260; 74177; 82565; 84520

== ENCOUNTER 2023-02-06 08:39 | Outpatient (RCR) | payer MEDICARE ==
[2023-01-16 11:28] LABS: BASOPHILS # (AUTO) 0.1 10^3/uL (0.0-0.1); BASOPHILS % (AUTO) 1 % (0-10); EOSINOPHILS # (AUTO) 0.2 10^3/uL (0.0-0.3); EOSINOPHILS % (AUTO) 3 % (0-10); HEMATOCRIT 44 % (35-52); LYMPHOCYTES # (AUTO) 2.1 10^3/uL (1.0-4.0); LYMPHOCYTES % (AUTO) 34 % (12-44); MEAN CORPUSCULAR HEMOGLOBIN 28 pg (25-34); MEAN CORPUSCULAR HGB CONC 32 g/dL (32-36); MEAN CORPUSCULAR VOLUME 88 fL (80-99); MEAN PLATELET VOLUME 10.6 fL (9.0-12.2); MONOCYTES # (AUTO) 0.6 10^3/uL (0.0-1.0); MONOCYTES % (AUTO) 9 % (0-12); NEUTROPHILS # (AUTO) 3.3 10^3/uL (1.8-7.8); NEUTROPHILS % (AUTO) 52 % (42-75); PLATELET COUNT 222 10^3/uL (130-400); WHITE BLOOD COUNT 6.3 10^3/uL (4.3-11.0)
[2023-01-16 11:48] LABS: ALBUMIN 4.1 GM/DL (3.2-4.5); BILIRUBIN,TOTAL 0.6 MG/DL (0.1-1.0); CALCIUM 10.2 MG/DL (8.5-10.1); CREATININE SERUM 0.88 MG/DL (0.60-1.30); POTASSIUM 4.1 MMOL/L (3.6-5.0); TOTAL PROTEIN 7.4 GM/DL (6.4-8.2)
[~2023-02-06 08:39] MED LIST changes: -HOLD METFORMIN - RECEIVED CONTRAST 20 ML VIAL IV SCH; -IOHEXOL 350 MG/ML 100 ML (OMNIPAQUE 350) VIAL IV ONE; -NS 100 ML (IVPB) BAG IV ONE
[2023-02-06 09:09] LABS: BASOPHILS # (AUTO) 0.1 10^3/uL (0.0-0.1); BASOPHILS % (AUTO) 1 % (0-10); EOSINOPHILS # (AUTO) 0.3 10^3/uL (0.0-0.3); EOSINOPHILS % (AUTO) 4 % (0-10); HEMATOCRIT 44 % (35-52); HEMOGLOBIN 14.1 g/dL (11.5-16.0); LYMPHOCYTES # (AUTO) 1.8 10^3/uL (1.0-4.0); LYMPHOCYTES % (AUTO) 27 % (12-44); MEAN CORPUSCULAR HEMOGLOBIN 28 pg (25-34); MEAN CORPUSCULAR HGB CONC 32 g/dL (32-36); MEAN CORPUSCULAR VOLUME 88 fL (80-99); MEAN PLATELET VOLUME 10.3 fL (9.0-12.2); MONOCYTES # (AUTO) 0.6 10^3/uL (0.0-1.0); MONOCYTES % (AUTO) 9 % (0-12); NEUTROPHILS # (AUTO) 3.8 10^3/uL (1.8-7.8); NEUTROPHILS % (AUTO) 58 % (42-75); PLATELET COUNT 210 10^3/uL (130-400); WHITE BLOOD COUNT 6.5 10^3/uL (4.3-11.0)
[2023-02-06 09:40] LABS: ALBUMIN 4.1 GM/DL (3.2-4.5); BILIRUBIN,TOTAL 0.9 MG/DL (0.1-1.0); CALCIUM 10.2 MG/DL (8.5-10.1); POTASSIUM 4.1 MMOL/L (3.6-5.0); TOTAL PROTEIN 7.5 GM/DL (6.4-8.2)
== END 2023-02-09 | disposition home or self-care (01) ==
LOC: ONC 08:39
PROVIDERS: ATTEND Internal Medicine Hematology & Oncology
DX: D05.11 Intraductal carcinoma in situ of right breast (principal); I10 Essential (primary) hypertension; E11.9 Type 2 diabetes mellitus without complications; E03.9 Hypothyroidism, unspecified
CPT/HCPCS: 80053; 85025; G0463; 36415; 99214

== ENCOUNTER → 2023-02-16 | Outpatient (CLI) | payer MEDICARE ==
[~2023-02-16] VITALS: Ht 168.9 cm; Wt 85.4 kg
[~2023-02-16] MED LIST changes: +ANAS1TAB50 PO; +VITC1CAP PO
== END | disposition home or self-care (01) ==
LOC: PREOP 05:43
PROVIDERS: ATTEND Surgery
DX: Z01.818 Encounter for other preprocedural examination (principal)